=== PATIENT | female | born 1970 | race Caucasian/White ===

== ENCOUNTER 2019-09-14 09:05 | Emergency (ER) | payer BC, SELFPAY ==
--- NOTE | 2019-09-14 09:11 | ED_ITS ---
Entered by Ana Ybarra, acting as scribe for HPI - Chest Pain General: Chief Complaint: Neuro Symptoms/Deficit Stated Complaint: Cp/tightness Time Seen by Provider: 09/14/19 09:10 Source: patient Mode of arrival: ambulatory Limitations: no limitations History of Present Illness: HPI narrative: 49 yo female presents with chest pain. 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 when pt was driving to ED she had numbness to her R hand , R face and R leg. pt denies any other symptoms at this time. MD complaint: chest pain Onset (ago): minute(s) (just area captain) Timing of current episode: constant Prior episodes: No Onset: during exertion (cleaning up work station) Pain radiation: other (R hand) Severity: moderate Quality: tightness and heaviness Relieving factors: nothing Exacerbating factors: exertion Associated symptoms: Reports other (weakness to R side hand and leg and face) Review of Systems General: Reports: 10 or more systems reviewed and unremarkable except in HPI and below Neuro: Reports: numbness in extremities, weakness in extremities, changes in sensation and lack of coordination PFSH ED PFSH: Statuses (acute, chronic, etc) shown below reflect problem list status as previously entered and may not be historically accurate Social History Smoking and tobacco status: never smoked Physical Exam Narrative: EXAM NARRATIVE: Patient began having numbness and tingling to the right side of her face, right upper extremity and hand, and right lower extremity including foot, Const: COMMON NORMALS: oriented x3, no limitations, healthy appearing, alert and well nourished GENERAL APPEARANCE: cooperative, comfortable and well developed HENMT: COMMON NORMALS: normocephalic, head/scalp atraumatic, hearing grossly normal bilaterally, external ears normal and external nose normal HEAD & SCALP: normal to inspection, normocephalic and atraumatic FACE & SINUS: normal facial exam NOSE: external nose normal EXTERNAL EAR: Yes external ears normal MOUTH: oral and palatal mucosa normal Neck/C-Spine: COMMON NORMALS: full ROM, no lymphadenopathy, supple, no meningeal signs and no JVD Resp: COMMON NORMALS: normal respiratory effort, no retractions, no use of accessory muscles and clear to auscultation bilaterally AUSCULTATION: clear to auscultation bilaterally Cardio: COMMON NORMALS: no JVD, regular rate, regular rhythm, S1 normal heart sound, S2 normal heart sound and peripheral pulses 2+ throughout JUGULAR VENOUS DISTENTION: no JVD RATE: regular rate RHYTHM: regular rhythm HEART SOUNDS: S1 normal and S2 normal PERIPHERAL PULSES: pulses 2+ throughout GI: COMMON NORMALS: normal to inspection, nondistended, normoactive bowel sounds, soft to palpation, non-tender, no hepatosplenomegaly, no masses and no bruits PALPATION: Yes soft and Yes no hepatosplenomegaly : COMMON NORMALS: Yes no CVA tenderness BLADDER/KIDNEY EXAM: Yes no CVA tenderness Back/Pelvis: COMMON NORMALS: no CVA tenderness and thoracic and lumbar spine normal to inspection Extremity: COMMON NORMALS: normal to inspection, full ROM and normal capillary refill GENERAL: Yes normal exam except as noted Neuro: COMMON NORMALS: oriented x3 SENSORIUM/ORIENTATION: Yes alert MENINGEAL SIGNS: Yes no meningeal signs Skin: COMMON NORMALS: no rashes or lesions noted, no wounds, skin turgor normal, no jaundice and no petechiae GENERAL SKIN EXAM: no rashes or lesions noted and turgor normal Course Vital Signs: Vital signs: Vital Signs Temperature 98.3 F 09/14/19 09:21 Pulse Rate 99 09/14/19 09:21 Respiratory Rate 16 09/14/19 09:21 Blood Pressure 144/97 09/14/19 09:21 Pulse Oximetry 97 09/14/19 09:21 MDM - Chest Pain Lab Data: Labs: Lab Results 09/14/19 09/14/19 09/14/19 Range/Units 09:20 09:20 09:20 WBC 8.2 (4.0-10.0) 10^3/ uL RBC 5.28 (4.1-5.3) 10^6/u L Hgb 14.9 (11.5-15.3) g/dL Hct 45.0 (37.0-47.0) % MCV 85.2 (81-99) fL MCH 28.2 (28.0-34.0) pg MCHC 33.1 (30.0-36.0) g/dL RDW 11.9 L (12.1-15.1) % Plt Count 240 (130-400) 10^3/c mm MPV 11.4 H (7.4-10.4) fL Neut % (Auto) 61.8 % Lymph % (Auto) 27.7 % [place] % (Auto) 6.5 % Eos % (Auto) 3.1 % Baso % (Auto) 0.7 % Neut # (Auto) 5.1 (1.8-7.7) 10^3/u L Lymph # (Auto) 2.3 (0.8-4.8) 10^3/u L [place] # (Auto) 0.5 (0.2-0.9) 10^3/u L Eos # (Auto) 0.3 (0.0-0.8) 10^3/u L Baso # (Auto) 0.1 (0.0-0.1) 10^3/u L Nucleated RBC % (a uto) 0 % Nucleated RBCs # 0.0 /100WBC PT 13.80 H (10.5-13.3) SECO NDS INR 1.02 (0.8-1.2) APTT 29.3 (23.9-36.7) SECO NDS Sodium 133 L (136-145) mmol/L Potassium 4.4 (3.5-5.1) mmol/L Chloride 95 L (98-107) mmol/L Carbon Dioxide 26 (22-29) mmol/L Anion Gap 16.4 (5-19) BUN 11 (6-20) mg/dL Creatinine 0.8 (0.5-0.9) mg/dL GFR Calculation 75.6 L (90-130) mL/min Glucose 281 H (74-109) mg/dL Calcium 10.9 H (8.6-10.0) mg/Dl Total Bilirubin 0.5 (0.15-1.2) mg/dL AST 27 (0-32) U/L ALT 23 (0-33) U/L Alkaline Phosphata se 98 (35-105) IU/L Total Protein 7.5 (6.6-8.7) g/dL Albumin 4.5 (3.5-5.2) g/dL Globulin 3.0 (1.3-4.6) g/dL Ser , Divine i-Qnt 2.48 mIU/mL Coding Level of Care Code ED Grain Manager for Chg Fwd Exam Problem Focused The documentation recorded by the scribe, Ybarra,Ana Sada, accurately reflects the service I personally performed and the decisions made by me, Dustin Golden, Sep 14, 2019 09:05
[2019-09-14 09:12] VITALS: BMI 29.2
[2019-09-14 09:21] VITALS: BP 144/97; PULSE 99; RESP 16; TEMP 36.8; O2SAT 97
--- NOTE | 2019-09-14 09:21 | XR_ITS ---
WS: [id number] PORTABLE CHEST HISTORY: chest pain COMPARISON: 09/03/2015 Lungs are clear and well expanded. No pleural effusion or pneumothorax. Cardiac size: Normal. Mediastinum/Aorta: Normal mediastinum. No osseous abnormality seen. XR/XR chest 1V portable [id number] IMPRESSION: Unremarkable portable chest.
--- NOTE | 2019-09-14 09:21 | CT_ITS ---
WS: [id number] CT ANGIOGRAM CEREBRAL AND CAROTID ARTERIES HISTORY: cva, RIGHT weakness. TECHNIQUE: CT angiogram is performed of the carotid and cerebral arteries. During arterial injection imaging is obtained from the skull vertex to the aortic arch in 1.25 mm imaging. Coronal and sagittal reformats are submitted. Additional multi planar reformats of the carotid and cerebral arteries are submitted, MIP imaging also reviewed. NASCET criteria utilized. All CT scans at [facility] use at least one of these dose optimization techniques: automated exposure control; mA and/or kV ad justment per patient size (includes targeted exams where dose is matched to clinical indication); or iterative reconstruction. CONTRAST: Omnipaque 350; 95 mL IV. DLP: 2019.09 mGy.cm COMPARISON: None available. Carotid Angiogram: Right carotid: Common carotid artery: Arises normally from the innominate artery. No significant plaque or stenosis. Internal carotid artery: No plaque or stenosis. External carotid artery: Patent. Left carotid: Common carotid artery: Arises normally from the aorta. No significant plaque or stenosis. Internal carotid artery: No plaque or stenosis. External carotid artery: Patent. Right vertebral artery: Unremarkable. Left vertebral artery: Unremarkable. Arises normally from the subclavian artery. Subclavian arteries: No stenosis or significant abnormality. Upper thorax: Normal. Thyroid gland: Normal. Osseous structures: Straightening and reversal normal cervical lordosis. Mild spondylitic changes. CEREBRAL ANGIOGRAM: Intracranial vertebral arteries: Normal with no significant atherosclerosis. Basilar artery: No significant stenosis or occlusion. No aneurysm. Intracranial Internal carotid arteries: Demonstrates no significant stenosis or plaque. Middle cerebral arteries: Mild stenosis involving the origin of the LEFT M1 segment. Close to the derick ction with the ICA. No flow limitation or significant stenosis. Anterior cerebral arteries and ACOM: Normal. Posterior cerebral arteries and PCOM's: Normal. Dural venous sinuses are normally enhancing. Mastoid air cells: Normal. Paranasal sinuses: Normal. Calvarium: Normal. CT/CT angio headneck* [id number] IMPRESSION: 1. Normal carotid arteries. 2. Mild stenosis involving the origin of the LEFT M1 segment. No significant s tenosis or occlusions.
--- NOTE | 2019-09-14 09:21 | ECG_ITS ---
Measurements Intervals [place] Rate: 81 P: -16 [place]: 169 QRS: -40 QRSD: 94 T: 38 QT: 350 QTc: 407 SINUS RHYTHM MARKED LEFT AXIS DEVIATION [QRS AXIS < -30] PATTERN CONSISTENT WITH PULMONARY DISEASE VOLTAGE CRITERIA FOR LVH [MEETS CRITERIA IN ONE OF: R(aVL), S(V1), R(V5), R(V5/V6) +S(V1)] Compared to ECG 01/19/2016 21:31:01 Left-axis deviation now present Left ventricular hypertrophy now present Sinus tachycardia no longer present Electronically Signed On 09-14-2019 19:21:19 HEALTH CARE ANALYST by Maria G Panaigua M.D. [email or web address] ([email or web address]
--- NOTE | 2019-09-14 09:21 | CT_ITS ---
WS: [id number] CT HEAD NONCONTRAST HISTORY: Symptoms of Acute Stroke TECHNIQUE: Contiguous axial imaging performed through the brain in 2.5 mm imaging. Bone and soft tiss ue windows. Sagittal and coronal reformats reviewed. All CT scans at [facility] use at ast one of these dose optimization techniques: automated exposure control; mA and/or kV adjustment pe r patient size (includes targeted exams where dose is matched to clinical indication); or iterative r econstruction. DLP: 685.75 mGy.cm COMPARISON: MRI 04/28/2015 and 09/15/2013 No acute intracranial hemorrhage, midline shift or mass effect. No atrophy or prior infarcts or herniation. Appearance of the carrizales-white matter differentiation and visualization of the basal ganglia is selective the prior study. Ventricles: Normal size with no hydrocephalus. Similar appearance of the [place] of [place] and middle cervical arteries as seen on the prior studies. Paranasal sinuses: As visualized are clear. Mastoid air cells: Well pneumatized. Calvarium and scalp: Skull is intact with no soft tissue edema or swelling. Notified Dustin Golden DO at 09/14/2019 9:[address]/CT head wo con* [id number] IMPRESSION: 1. Negative CT head. 2. No intracranial blood or edema to suggest acute stroke at this time.
--- NOTE | 2019-09-14 09:27 | PC.NURSE ---
See paper stroke packet for exact time and details. Patient to CT via stretcher.
[2019-09-14 09:33] LABS: Basophils # 0.1 10^3/uL (0.0-0.1); Basophils % 0.7 %; Eosinophils # 0.3 10^3/uL (0.0-0.8); Eosinophils % 3.1 %; Hemoglobin 14.9 g/dL (11.5-15.3); Lymphocytes # 2.3 10^3/uL (0.8-4.8); Lymphocytes % 27.7 %; Mean Corpuscular HGB Conc 33.1 g/dL (30.0-36.0); Mean Corpuscular Hemoglobin 28.2 pg (28.0-34.0); Mean Corpuscular Volume 85.2 fL (81-99); Mean Platelet Volume 11.4 fL (7.4-10.4); Monocytes # 0.5 10^3/uL (0.2-0.9); Monocytes % 6.5 %; Neutrophils # 5.1 10^3/uL (1.8-7.7); Neutrophils % 61.8 %; Nucleated Red Blood Cells % 0 %; Platelet Count 240 10^3/cmm (130-400); Red Blood Count 5.28 10^6/uL (4.1-5.3); Red Cell Distribution Width 11.9 % (12.1-15.1); White Blood Count 8.2 10^3/uL (4.0-10.0)
[2019-09-14 09:39] LABS: INR 1.02 (0.8-1.2)
[2019-09-14 09:40] LABS: Partial Thromboplastin Time 29.3 SECONDS (23.9-36.7)
--- NOTE | 2019-09-14 09:40 | PC.NURSE ---
Patient back to room
[2019-09-14 09:41] VITALS: BP 156/110; PULSE 101; RESP 15; O2SAT 98
[2019-09-14] MEDS: iohexol 350 mg/mL 100 mL Btl IV (09:42)
[2019-09-14 09:45] LABS: HCG Quantitative 2.48 mIU/mL
[2019-09-14 09:52] VITALS: BP 168/101; PULSE 93; RESP 15; O2SAT 100
[2019-09-14 09:56] LABS: Alanine Aminotransferase 23 U/L (0-33); Albumin Level 4.5 g/dL (3.5-5.2); Alkaline Phosphatase 98 IU/L (35-105); Anion Gap 16.4 (5-19); Aspartate Amino Transferase 27 U/L (0-32); Blood Urea Nitrogen 11 mg/dL (6-20); Calcium 10.9 mg/Dl (8.6-10.0); Carbon Dioxide 26 mmol/L (22-29); Chloride 95 mmol/L (98-107); Glomerular Filtration Rate 75.6 mL/min (90-130); Glucose 281 mg/dL (74-109); Potassium 4.4 mmol/L (3.5-5.1); Sodium 133 mmol/L (136-145); Total Bilirubin 0.5 mg/dL (0.15-1.2); Total Protein 7.5 g/dL (6.6-8.7)
--- NOTE | 2019-09-14 09:59 | PC.NURSE ---
See stroke packet for documentation on TPA.
[2019-09-14 10:00] VITALS: BP 140/100; PULSE 89; RESP 15; O2SAT 97
--- NOTE | 2019-09-14 10:09 | W.ED.NEUROSD ---
HPI - Neuro Symptoms/Deficit General: Chief Complaint: Neuro Symptoms/Deficit Stated Complaint: Cp/tightness Time Seen by Provider: 09/14/19 09:10 Source: patient Mode of arrival: ambulatory Limitations: no limitations History of Present Illness: Severity: moderate PFSH ED PFSH: Statuses (acute, chronic, etc) shown below reflect problem list status as previously entered and may not be historically accurate Social History Smoking and tobacco status: never smoked Course Vital Signs: Vital signs: Vital Signs Temperature 98.3 F 09/14/19 09:21 Pulse Rate 101 H 09/14/19 09:41 Respiratory Rate 15 09/14/19 09:41 Blood Pressure 156/110 09/14/19 09:41 Pulse Oximetry 98 09/14/19 09:41 MDM - Neuro Symptoms/Deficit Lab Data: Labs: Lab Results 09/14/19 09/14/19 09/14/19 Range/Units 09:20 09:20 09:20 WBC 8.2 (4.0-10.0) 10^3/ uL RBC 5.28 (4.1-5.3) 10^6/u L Hgb 14.9 (11.5-15.3) g/dL Hct 45.0 (37.0-47.0) % MCV 85.2 (81-99) fL MCH 28.2 (28.0-34.0) pg MCHC 33.1 (30.0-36.0) g/dL RDW 11.9 L (12.1-15.1) % Plt Count 240 (130-400) 10^3/c mm MPV 11.4 H (7.4-10.4) fL Neut % (Auto) 61.8 % Lymph % (Auto) 27.7 % [place] % (Auto) 6.5 % Eos % (Auto) 3.1 % Baso % (Auto) 0.7 % Neut # (Auto) 5.1 (1.8-7.7) 10^3/u L Lymph # (Auto) 2.3 (0.8-4.8) 10^3/u L [place] # (Auto) 0.5 (0.2-0.9) 10^3/u L Eos # (Auto) 0.3 (0.0-0.8) 10^3/u L Baso # (Auto) 0.1 (0.0-0.1) 10^3/u L Nucleated RBC % (a uto) 0 % Nucleated RBCs # 0.0 /100WBC PT 13.80 H (10.5-13.3) SECO NDS INR 1.02 (0.8-1.2) APTT 29.3 (23.9-36.7) SECO NDS Sodium 133 L (136-145) mmol/L Potassium 4.4 (3.5-5.1) mmol/L Chloride 95 L (98-107) mmol/L Carbon Dioxide 26 (22-29) mmol/L Anion Gap 16.4 (5-19) BUN 11 (6-20) mg/dL Creatinine 0.8 (0.5-0.9) mg/dL GFR Calculation 75.6 L (90-130) mL/min Glucose 281 H (74-109) mg/dL Calcium 10.9 H (8.6-10.0) mg/Dl Total Bilirubin 0.5 (0.15-1.2) mg/dL AST 27 (0-32) U/L ALT 23 (0-33) U/L Alkaline Phosphata se 98 (35-105) IU/L Total Protein 7.5 (6.6-8.7) g/dL Albumin 4.5 (3.5-5.2) g/dL Globulin 3.0 (1.3-4.6) g/dL Ser , Divine i-Qnt 2.48 mIU/mL Discharge Plan Discharge Patient Disposition: Home, Self-Care Clinical Impression: Cerebrovascular accident Condition: Stable Prescriptions: No Action [place] 5-325 mg Tablet 1 tab PO Q6H PRN (Reason: Pain) RF: 0 Xanax 0.25 mg Tablet 0.25 mg PO BID PRN (Reason: Anxiety) RF: 0 Lidoderm 5 % Adhesive Patch,Medicated See Rx Instructions .ROUTE .COMPLEX RF: 0 Trulicity 1.5 mg/0.5 mL pen injector 1.5 mg SUBCUT Q7D RF: 0 Discharge Orders: Transfer Out of Facility (Order); Ordered 09/14/19 Ordered By: Dustin Golden Referrals: Lara Chisholm MD [Family Provider] - Coding Level of Care Code ED Remediation Technician for Jacquelineg Julio
[2019-09-14 10:17] LABS: Troponin(5th) Baseline 11 ng/mL (0-10)
--- NOTE | 2019-09-14 10:20 | PC.NURSE ---
Addendum entered by Avery Summers, RONNIE 09/14/19 10:43: Mild right arm,leg, and face numbness/weakness noted. Not improved at this time. Visual changes noted with right eye. Described as blurred vision. Original Note: Mild right arm,leg, and face numbness/weakness noted. Not improved at this time. Visual changes noted with right eye. Described at blurred vision.
[2019-09-14 10:24] VITALS: BP 152/99; PULSE 101; RESP 15; O2SAT 97
--- NOTE | 2019-09-21 11:06 | P.PNCC_ITS ---
Stroke Alert Activation ED Arrival Date: 09/14/19 ED Arrival Time: : Last Known Normal/at Baseline: 1-2 hours ago Other Last Known Well Infomation: I was called stat for stroke team at 10 for this patient who was last known normal a little over an hour ago. Her Accu- Chek was 249 and blood pressure 156/110. Although her presenting complaint was chest pain, she said that the reason she came was because of the acute onset of numbness on the right associated with weakness. She was wide-awake at the time of onset of symptoms. She had a significant deficit at the time of evaluation. She has risk factors of diabetes and hypertension, with new diagnosis of both. She was treated with TPA after giving informed consent and transferred to [facility] [place] for further care because we did not have an ICU bed. I explained to her that we need to make sure to have full control of her risk factors and that I would need to see her urgently in the office after discharge. Stroke Alert Activated by: Dr. Guerrero NIH stroke score NIHSS: Level Of Consciousness - 1a: 0 Level Of Consciousness Questions - 1b: Both Correct Level Of Consciousness Commands - 1c: Both Correct Best Gaze - 2: Normal Visual [place] - 3: No Visual Loss Facial Palsy - 4: Minor Paralysis Motor Arm Right - 5: Drift Motor Arm Left - 5: No Drift Motor Leg Right - 6: Drift Motor Leg Left - 6: No Drift Limb Ataxia - 7: Present In One Limb Sensory - 8: Mild To Moderate Loss Best Language - 9: No Aphasia Dysarthia - 10: Normal Extinction And Inattention - 11: 0 Score: Total Score: 5 Stroke Alert Data/Treatment Time to CT of Head: 09:24 CT Results Date: 09/14/19 CT Results Time: 09:26 Stroke Risk Factors: hyperlipidemia, hypertension, obesity and diabetes mellitus tPA Started Date: 09/14/19 tPA Started Time: tPA Started - Time: 09:46 tPA Admin Prior to Arrival: No Patient & Family Educated on: Cause of Stroke, Risk Factors, Treament Plan, Stroke Education Booklet and tPA Risks/Benefits Other Patient & Family Education: I talked with her at length about the cause of ischemic stroke and risk factors. I went over the stroke booklet with her. I asked her to be sure to be seen in my office within a week or 2 to make sure that we get her risk factors under control. She will follow closely with Dr. Adam. I reviewed her CBC and complete metabolic panel which were unremarkable. Lipid panel remains pending. I reviewed her normal CT of the head. Standardized Stroke Orders Used: Yes Other Information: Transferred to [facility] [place] because of lack of ICU beds Critical Care Time Critical Care Time: 30 - 74 mins Additional information about critical care time: I monitor this patient from the time she was in CAT scan until her bolus of TPA was administered. I took time to inform her of the diagnosis and the plan. I was at the bedside for 30 minutes. A&P Assessment and plan (1) Left acute arterial ischemic stroke, MCA (middle cerebral artery): Status: Acute Code(s): I63.512 - Cerebral infarction due to unspecified occlusion or stenosis of left middle cerebral artery (2) Diabetes mellitus type 2 in obese: Status: Acute Code(s): E11.69 - Type 2 diabetes mellitus with other specified complication; E66.9 - Obesity, unspecified (3) Hypertension: Status: Acute Code(s): I10 - Essential (primary) hypertension Coding Level of Care Code Acute Biology Laboratory Assistant for [facility] Diagnoses Left acute arterial ischemic stroke, MCA (middle cerebral artery) I63.512 Diabetes mellitus type 2 in obese E11.69; E66.9 Hypertension I10
== END 2019-09-14 10:26 | disposition home or self-care (01) ==
PROVIDERS: Emergency Provider Family Medicine; Family Provider Internal Medicine
DX: I63.9 Cerebral infarction, unspecified (principal)
CPT/HCPCS: 12345; 70450; 70496; 70498; 71045; 80053; 84484; 84702; 85025; 85610; 85730; 93005; 96360; 96374; 99282; J2997; Q9967

== ENCOUNTER → 2019-09-21 10:07 | Outpatient (BNVA) | payer BC, SELFPAY | PROVIDERS: Family Provider Internal Medicine; Visit Provider Specialist | DX: G43.009 Migraine without aura, not intractable, without status migrainosus (principal); Z86.73 Personal history of transient ischemic attack (TIA), and cerebral infarction without residual deficits | CPT/HCPCS: 99205; 99215 ==

== ENCOUNTER 2020-12-01 09:53 | Emergency (ER) | payer BC, SELFPAY ==
[2020-12-01 09:59] VITALS: BP 123/84; PULSE 98; RESP 18; TEMP 36.4; O2SAT 94; BMI 26.7
--- NOTE | 2020-12-01 10:16 | CT_ITS ---
WS: [id number] CT HEAD NONCONTRAST HISTORY: numbness to right side of body TECHNIQUE: Contiguous axial imaging performed through the brain in 2.5 mm imaging. Bone and soft tiss ue windows. Sagittal and coronal reformats reviewed. All CT scans at [facility] use at le ast one of these dose optimization techniques: automated exposure control; mA and/or kV adjustment pe r patient size (includes targeted exams where dose is matched to clinical indication); or iterative r econstruction. DLP: 719.32 mGy.cm COMPARISON: 09/15/2019 and 09/14/2019 No acute intracranial hemorrhage, midline shift or mass effect. No atrophy or prior infarcts or herniation. Small lacunar infarct in the RIGHT basal ganglia. No acu te area of sulcal effacement. Ventricles: Normal size with no hydrocephalus. Paranasal sinuses: As visualized are clear. Mastoid air cells: Well pneumatized. Calvarium and scalp: Skull is intact with no soft tissue edema or swelling. CT/CT head wo con* [id number] IMPRESSION: No acute intracranial hemorrhage or edema. Stable noncontrast head CT.
--- NOTE | 2020-12-01 10:28 | USCV_ITS ---
Argueta Inés Age: 50 Gender: F : 1970 Exam Date: 12/01/2020 10:41 Ordering Phys: Alberto Vargas Technologist: Ana Prince Exam Location: [facility] Indication: NUMBNESS IN RT HAND WITH PAIN RT LATERAL HUMERUS HISTORY: Pain and numbness in rt hand and arm since 3:30 am today. PROCEDURES: Venous duplex imaging was performed in only the right upper extremity. The following venous structures were evaluated: internal jugular vein, subclavian vein, axillary vein, and brachial veins. In addition, the basilic vein, cephalic vein, radial vein, and ulnar vein. FINDINGS: The veins of the right upper extremity are readily compressible with normal venous flow dynamics including spontaneous flow, respiratory phasic variation and augmentation. CONCLUSIONS No evidence for right upper extremity deep venous thrombosis. Dr. Jackie Garza DO (Electronically Signed) Final Date: 01 December 2020 12:25 S
--- NOTE | 2020-12-01 10:28 | ED_ITS ---
HPI - Neuro Symptoms/Deficit General: Chief Complaint: Neuro Symptoms/Deficit Stated Complaint: numbness in rt arm Time Seen by Provider: 12/01/20 10:16 History of Present Illness: HPI Narrative: Patient is a 50-year-old female comes to the ED with numbness and weakness right arm and right leg. Patient says she woke up with symptoms today. Patient has a past medical history of stroke approximately 1 year ago where she received TPA and was transferred to [facility]. She has some residual right arm and leg weakness. Patient also has a history of type 2 diabetes, hypertension and migraines. Patient does take clopidogrel and aspirin daily. Patient states she has residual right arm and right leg weakness but feels like they are a little weaker today. Patient did report that she might have overdone things last week and says she worked a lot and also made a trip up to [facility]. She reports having a headache for the past 20 days as well. She is also complained of having a little bit of numbness to her left maxillary region of face. Patient also says her right upper arm is sore and feels like it has a knot in it. She has a history of blood clots. Denies any injury or trauma to right arm to cause upper arm pain. Associated symptoms: Reports headache(s); Deny chest pain, nausea or vomiting Review of Systems Const: Denies: fever(s), chills or fatigue Eyes: Denies: change in vision or eye discomfort ENMT: Denies: throat pain, odynophagia, nasal discharge or nasal congestion Card: Denies: chest pain, palpitations, edema, swelling of feet/ankles, dyspnea on exertion or orthopnea Resp: Denies: dyspnea, productive cough or non-productive cough GI: Denies: abdominal pain, nausea, vomiting, diarrhea, constipation or hematochezia : Denies: flank pain, dysuria or hematuria Musc: Reports: extremity pain (upper right arm pain); Denies: neck pain, back pain or extremity swelling Skin/Breast: Denies: rash or new lesions Neuro: Reports: headache(s), numbness in extremities (right side-pt has residual numbness from previous stroke) and weakness in extremities (right side- pt has residual weakness from previous stroke) PFS ED PFSH: Social History Smoking and tobacco status: never smoked Alcohol intake: current Alcohol intake frequency: holidays/special occasions only NIH stroke score NIHSS: Level Of Consciousness - 1a: 0 Level Of Consciousness Questions - 1 b: Both Correct Level Of Consciousness Commands - 1c: Both Correct Best Gaze - 2: Normal Visual Whiting - 3: No Visual Loss Facial Palsy - 4: Normal Motor Arm Right - 5: No Drift Motor Arm Left - 5: No Drift Motor Leg Right - 6: No Drift Motor Leg Left - 6: No Drift Limb Ataxia - 7: Absent Sensory - 8: Normal Best Language - 9: No Aphasia Dysarthia - 10: Normal Extinction And Inattention - 11: 0 Score: Total Score: 0 Physical Exam Const: COMMON NORMALS: no acute distress, patient oriented x3 and healthy appearing GENERAL APPEARANCE: cooperative and comfortable HENMT: COMMON NORMALS: normocephalic HEAD & SCALP: normocephalic MOUTH: Normal oral and palatal mucosa present THROAT: posterior oropharynx normal and uvula midline Eye: COMMON NORMALS: Equal, round and reactive pupils present, EOMs intact bilaterally and normal visual whiting by confrontation PUPIL: Yes Equal, round and reactive pupils present Neck/C-Spine: COMMON NORMALS: supple GENERAL: Yes normal visual inspection Resp: COMMON NORMALS: normal respiratory effort, No retractions, No use of accessory muscles and clear to auscultation bilaterally AUSCULTATION: clear to auscultation bilaterally Cardio: COMMON NORMALS: regular rate, regular rhythm, S1 normal heart sound present, S2 normal heart sound present, No gallops present (Cardio), No clicks present (Cardio), No murmurs present (Cardio) and Peripheral pulses 2+ throughout RATE: regular rate RHYTHM: regular rhythm HEART SOUNDS: S1 normal heart sound present and S2 normal heart sound present PERIPHERAL PULSES: Peripheral pulses 2+ throughout GI: COMMON NORMALS: Normal to inspection, nondistended, normoactive bowel sounds present, Soft to palpation, non-tender and no masses PALPATION: Yes Soft to palpation : COMMON NORMALS: Yes no CVA tenderness BLADDER/KIDNEY EXAM: Yes no CVA tenderness Back/Pelvis: COMMON NORMALS: no CVA tenderness Extremity: NARRATIVE EXTREMITY EXAM: Right upper arm?no visible edema seen. No nodule palpated. Patient did have tenderness to palpation over mid humerus of arm. GENERAL: Yes normal exam except as noted Neuro: COMMON NORMALS: patient oriented x3, CN's II-XII intact bilaterally, moves all extremities, no focal motor deficits and no sensory deficits noted SPEECH: speech normal SENSORY EXAM: Yes extremities (intact) MOTOR EXAM: 5/5 motor strength present throughout and No Pronator motor function present Skin: GENERAL SKIN EXAM: dry skin Course Reevaluation(s): Reevaluation #1: I talked with patient about some of her labs that have come back and now she had an elevated blood sugar of 399 here in the ED. She did say that she had a cappuccino just prior to arrival. She thinks that is probably what shot up her blood sugars. Vital Signs: Vital signs: Vital Signs Temperature 97.5 F L 12/01/20 09:59 Pulse Rate 100 12/01/20 10:38 Respiratory Rate 18 12/01/20 10:38 Blood Pressure 106/69 12/01/20 10:38 Pulse Oximetry 97 12/01/20 10:38 MDM - Neuro Symptoms/Deficit MDM Narrative: Medical decision making narrative: Patient is a 50-year-old female comes to the ED with right-sided weakness. Patient has a history of past stroke approximately 1 year ago that left her with some residual right-sided weakness. Patient appears in no acute distress or pain and neuro exam was normal showed no deficits. Patient did have an elevated blood glucose of 399 but the rest of her labs were unremarkable. NIHSS-0. CT of head showed no acute findings. Ultrasound venous duplex of right upper extremity showed no DVTs or blood clots. Patient did say that she thinks she over exerted herself last week by working more days and also making a trip up to [place]. Patient's right sided weakness is probably from prior stroke on top of overexerting herself for this past week. Patient was given 10 units of insulin while here in the ED to treat her blood glucose and hydrocodone for her headache. Patient was diagnosed with weakness likely due to old stroke, hyperglycemia, headache and right upper arm pain. She has follow-up with her PCP this coming Friday. Return to ED precautions given. She was told to continue taking all her at home meds. Patient understood and agreed with plan. Lab Data: Attestation: I reviewed the patient's lab results. Labs: Lab Results 03/26/21 03/26/21 Range/Units 10:30 10:30 WBC 5.6 (4.0-10.0) 10^3/ uL RBC 5.08 (4.1-5.3) 10^6/u L Hgb 14.9 (11.5-15.3) g/dL Hct 44.2 (37.0-47.0) % MCV 87.0 (81-99) fL MCH 29.3 (28.0-34.0) pg MCHC 33.7 (30.0-36.0) g/dL RDW 11.8 L (12.1-15.1) % Plt Count 209 (130-400) 10^3/c mm MPV 11.8 H (7.4-10.4) fL Neut % (Auto) 56.3 % Lymph % (Auto) 30.6 % [place] % (Auto) 8.8 % Eos % (Auto) 3.4 % Baso % (Auto) 0.7 % Neut # (Auto) 3.12 (1.8-7.7) 10^3/u L Lymph # (Auto) 1.7 (0.8-4.8) 10^3/u L [place] # (Auto) 0.5 (0.2-0.9) 10^3/u L Eos # (Auto) 0.2 (0.0-0.8) 10^3/u L Baso # (Auto) 0.0 (0.0-0.1) 10^3/u L Nucleated RBC % (a uto) 0 % Nucleated RBCs # 0.0 /100WBC Sodium 134 L (136-145) mmol/L Potassium 3.6 (3.5-5.1) mmol/L Chloride 90 L (98-107) mmol/L Carbon Dioxide 34 H (22-29) mmol/L Anion Gap 13.6 (5-19) BUN 18 (6-20) mg/dL Creatinine 0.8 (0.5-0.9) mg/dL GFR Calculation 75.3 L (90-130) mL/min Glucose 399 H (65-115) mg/dL Calculated Osmolal ity 297 H (285-295) mOsm/k g Calcium 9.2 (8.5-10.5) mg/dL Total Bilirubin 0.4 (0.15-1.2) mg/dL AST 21 (0-32) U/L ALT 23 (0-33) U/L Alkaline Phosphata se 92 (35-105) IU/L Total Protein 7.6 (6.6-8.7) g/dL Albumin 4.5 (3.5-5.2) g/dL Globulin 3.1 (1.3-4.6) g/dL Imaging Data^: CT Head: Attestation: I personally reviewed and interpreted this imaging study as follows: Radiologist's impression: [address] [place] [address] CT Scan Report Signed Patient: Inés Argueta Unit #: [id number] : 1970 Age/Sex: 50 / F ADM Date: 12/01/20 Loc: ER Room/Bed: Attending Dr: Ordering Provider/Ordering MD: Alberto Vargas Date of Service: 12/01/20 Procedure(s): CT head wo con* [id number] Accession Number(s): [id number] Report Number: [id number] WS: [id number] CT HEAD NONCONTRAST HISTORY: numbness to right side of body TECHNIQUE: Contiguous axial imaging performed through the brain in 2.5 mm imaging. Bone and soft tissue windows. Sagittal and coronal reformats reviewed. All CT scans at [facility] use at least one of these dose optimization techniques: automated exposure control; mA and/or kV adjustment per patient size (includes targeted exams where dose is matched to clinical indication); or iterative reconstruction. DLP: 719.32 mGy.cm COMPARISON: 09/15/2019 and 09/14/2019 No acute intracranial hemorrhage, midline shift or mass effect. No atrophy or prior infarcts or herniation. Small lacunar infarct in the RIGHT basal ganglia. No acute area of sulcal effacement. Ventricles: Normal size with no hydrocephalus. Paranasal sinuses: As visualized are clear. Mastoid air cells: Well pneumatized. Calvarium and scalp: Skull is intact with no soft tissue edema or swelling. CT/CT head wo con* [id number] IMPRESSION: No acute intracranial hemorrhage or edema. Stable noncontrast head CT. Dictated By: Jackie Garza DO Signed By: Jackie Garza A Signed Date/Time: 12/01/20 1135 DD/ 1128 US Vascular: Attestation: I personally reviewed and interpreted this imaging study as follows: Radiologist's impression: Ultrasound venous duplex right upper extremity?prelim report no DVTs or blood clots seen. Discharge Plan Discharge Patient Disposition: Home Clinical Impression: Weakness due to old stroke, Hyperglycemia Upper arm pain Qualifiers: Laterality: right Qualified Code(s): M79.621 - Pain in right upper arm Headache Qualifiers: Headache type: unspecified Headache chronicity pattern: acute headache Intractability: not intractable Qualified Code(s): R51.9 - Headache, unspecified Condition: Stable Prescriptions: No Action aspirin [Aspir-Low] 81 mg tablet,delayed release (DR/EC) 81 mg PO DAILY@1999 RF: 0 hydroxyzine HCl 25 mg tablet 25 mg PO DAILY PRN (Reason: Anxiety) RF: 0 magnesium oxide 400 mg (241.3 mg magnesium) tablet 800 mg PO DAILY@1999 RF: 0 hydrocodone-acetaminophen [Thorndale] 5-325 mg Tablet 1 tab PO Q6H PRN (Reason: Pain) RF: 0 alprazolam [Xanax] 0.25 mg Tablet 0.25 mg PO BID PRN (Reason: Anxiety) RF: 0 lidocaine [Lidoderm] 5 % Adhesive Patch,Medicated See Rx Instructions .ROUTE .COMPLEX RF: 0 Trulicity 1.5 mg/0.5 mL pen injector 1.5 mg SUBCUT Q7D RF: 0 losartan 50 mg Tablet 50 mg PO DAILY@1999 RF: 0 venlafaxine 150 mg Capsule,Extended Release 24hr 150 mg PO DAILY@1999 RF: 0 hydrochlorothiazide 25 mg Tablet 25 mg PO DAILY@1999 RF: 0 Crestor 10 mg Tablet 10 mg PO DAILY@1999 RF: 0 Plavix 75 mg tablet 75 mg PO DAILY@1999 RF: 0 Discharge Orders: Discharge ED (Routine); Ordered 12/01/20 Ordered By: Alberto Vargas Referrals: Lara Chisholm MD [Primary Care Provider] - Discharge Diet: Regular Discharge Activity: Increase activity as tolerated Patient Instructions: Hyperglycemia Activity Restrictions/Additional Instructions: Follow-up with medical provider as directed at your next scheduled appointment this coming Friday. Continue taking all home medications as previously p rescribed. Return to the ER or your medical provider if condition worsens. Please read and understand discharge instructions. If any questions, please ask. Coding Level of Care Code ED Factorer for Jacquelineg Fwd Exam Comprehensive
[2020-12-01 10:38] VITALS: BP 106/69; PULSE 100; RESP 18; O2SAT 97
[2020-12-01 10:58] LABS: Basophils % 0.7 %; Eosinophils # 0.2 10^3/uL (0.0-0.8); Eosinophils % 3.4 %; Hematocrit 44.2 % (37.0-47.0); Hemoglobin 14.9 g/dL (11.5-15.3); Lymphocytes # 1.7 10^3/uL (0.8-4.8); Lymphocytes % 30.6 %; Mean Corpuscular HGB Conc 33.7 g/dL (30.0-36.0); Mean Corpuscular Hemoglobin 29.3 pg (28.0-34.0); Mean Platelet Volume 11.8 fL (7.4-10.4); Monocytes # 0.5 10^3/uL (0.2-0.9); Monocytes % 8.8 %; Neutrophils # 3.12 10^3/uL (1.8-7.7); Neutrophils % 56.3 %; Nucleated Red Blood Cells % 0 %; Platelet Count 209 10^3/cmm (130-400); Red Blood Count 5.08 10^6/uL (4.1-5.3); Red Cell Distribution Width 11.8 % (12.1-15.1); White Blood Count 5.6 10^3/uL (4.0-10.0)
[2020-12-01 10:59] LABS: Alanine Aminotransferase 23 U/L (0-33); Albumin Level 4.5 g/dL (3.5-5.2); Alkaline Phosphatase 92 IU/L (35-105); Anion Gap 13.6 (5-19); Aspartate Amino Transferase 21 U/L (0-32); Blood Urea Nitrogen 18 mg/dL (6-20); Calcium 9.2 mg/dL (8.5-10.5); Carbon Dioxide 34 mmol/L (22-29); Chloride 90 mmol/L (98-107); Creatinine Clr Calc Pharmacy 79.3763; Globulin 3.1 g/dL (1.3-4.6); Glomerular Filtration Rate 75.3 mL/min (90-130); Glucose 399 mg/dL (65-115); Osmolality Calculated 297 mOsm/kg (285-295); Potassium 3.6 mmol/L (3.5-5.1); Sodium 134 mmol/L (136-145); Total Bilirubin 0.4 mg/dL (0.15-1.2); Total Protein 7.6 g/dL (6.6-8.7)
[2020-12-01] MEDS: insulin regular-human 100 units/1 mL 10 UNIT IVP (11:11)
[2020-12-01] MEDS: HYDROcodone-acetaminophen 5-325 mg Tablet 1 TAB PO (11:25)
[2020-12-01 12:38] VITALS: BP 106/69; PULSE 100; RESP 18; O2SAT 97
== END 2020-12-01 12:39 | disposition home or self-care (01) ==
PROVIDERS: Emergency Provider Physician Assistant; PCP Internal Medicine
DX: R53.1 Weakness (principal); R51.9 Headache, unspecified; M79.621 Pain in right upper arm; R73.9 Hyperglycemia, unspecified; Z79.82 Long term (current) use of aspirin; Z86.73 Personal history of transient ischemic attack (TIA), and cerebral infarction without residual deficits
CPT/HCPCS: 70450; 80053; 85025; 93971; 96374; 99284; J1815

== ENCOUNTER 2020-12-18 09:06 | Outpatient (CLI) | payer BC, SELFPAY ==
--- NOTE | 2020-12-18 09:48 | MR_ITS ---
WS: [id number] MRI HEAD WITHOUT AND WITH GADOLINIUM ENHANCEMENT WITH ATTENTION TO THE PITUITARY. TECHNIQUE: Sagittal T1, T2 axial, T2 axial FLAIR, axial susceptibility weighted imaging, axial diffus ion weighted images, and coronal T2 images were obtained. Pre and post-T1 axial and post T1 coronal i mages. ADC and FSPGR images. High-resolution imaging with attention to the pituitary. CLINICAL INFORMATION: MIGRAINE HEADACHE COMPARISON: MRI September 15, [address] December 01, 2020 and MRI April 28, 2015 FINDINGS: No evidence of restricted diffusion to suggest acute ischemia. Ventricular system and basal cisterns are patent. Mild supratentorial periventricular and subcortical white matter changes unchanged since September 15, 2019. This is slightly progressed compared . White matter changes in the fer. Normal posterior fossa. Normal vascular flow voids at the skull base. No extra-axial fluid collection s. No evidence of mass or mass effect. Paranasal sinuses and mastoid air cells are well aerated. No h emosiderin on susceptibly weighted images. Normal optic chiasm and pituitary infundibulum. No evidence of intrasellar or suprasellar mass. Bethany l cavernous sinuses and Meckel's cave. Temporal lobes and hippocampal formations are normal in appear ance. No abnormal intracranial enhancement. Normal dural venous sinuses. MR/MR pituitary wo/w con* [id number] IMPRESSION: 1. No evidence of restricted diffusion to suggest acute ischemia. 2. No evidence of intrasellar or suprasellar mass. Partially empty sella. Norm al residual enhancing pituitary tissue. 3. Normal cavernous sinus and Meckel's cave. 4. Mild patchy supratentorial white matter changes nonspecific in a patient th is age but can be seen with hypertension, diabetes, and migraine headaches. Mil d white matter changes in the fer. 5. No hemosiderin on the susceptibility weighted images. 6. No abnormal gadolinium enhancement.
[2020-12-18] MEDS: gadobenate dimeglumine 20 mL vial IV (10:38)
== END 2020-12-18 09:07 | disposition home or self-care (01) ==
PROVIDERS: PCP Internal Medicine; Visit Provider Internal Medicine
DX: G43.909 Migraine, unspecified, not intractable, without status migrainosus (principal)
CPT/HCPCS: 70553; A9577

== ENCOUNTER 2021-04-10 15:32 | Outpatient (CLI) | payer BC, SELFPAY ==
--- NOTE | 2021-04-10 15:38 | XR_ITS ---
WS: [id number] Pelvis, AP view, 04/10/2021 Clinical Data: FALL WITH PAIN IN LT HIP THAT RADIATES INTO GROIN WITH EDEMA Comparison: None. Findings: No fractures or dislocations are seen. The SI joints and pubic symphysis are intact. The soft tissues are not remarkable. There are phleboliths in the true pelvis. XR/XR pelvis 1-2V* [id number] Impression: Negative for fracture.
--- NOTE | 2021-04-10 15:38 | XR_ITS ---
WS: [id number] KUB, AP view, 04/10/2021 Clinical Data: FALL LT GROIN PAIN WITH EDEMA Comparison: KUB, 08/04/2018. Findings: No abnormal intraabdominal masses or calcifications are seen. There is no dilatated small bowel or ev idence of obstruction. There is a density overlying the right kidney which may be within the colon. There is moderate fecal material throughout the colon. There are phleboliths in the pelvis. There are clips in the right uppe r quadrant from a cholecystectomy. XR/XR abdomen 1V* [id number] Impression: Negative KUB.
== END 2021-04-10 15:33 | disposition home or self-care (01) ==
LOC: RADOUTREAD 15:35 → WPI 15:36
PROVIDERS: PCP Internal Medicine; Visit Provider Internal Medicine
DX: M25.552 Pain in left hip (principal)
CPT/HCPCS: 72170; 74018

== ENCOUNTER 2022-11-20 07:51 | Outpatient (CLI) | payer BC, SELFPAY ==
--- NOTE | 2022-11-20 08:14 | MM_ITS ---
WS: [id number] BILATERAL SCREENING DIGITAL TOMOSYNTHESIS MAMMOGRAM WITH CAD HISTORY: SCREENING COMPARISON: 03/13/2018 and 03/13/2016 Bilateral CC and MLO views with tomosynthesis and synthetic mammography submitted. Computer aided det ection analyzed. Breast composition: The breasts are almost entirely fatty. No suspicious masses, microcalcifications or architectural distortion. Benign calcification anterior LEFT breast. MM/[place] [id number] IMPRESSION: BI-RADS: 2-Benign FOLLOW UP: 1 Year Follow-up
== END 2022-11-20 07:52 | disposition home or self-care (01) ==
LOC: RAD 07:53
PROVIDERS: PCP Internal Medicine; Visit Provider Internal Medicine
DX: Z12.31 Encounter for screening mammogram for malignant neoplasm of breast (principal)
CPT/HCPCS: 77063; 77067

== ENCOUNTER 2023-09-11 10:38 | Emergency (ER) | payer BC, SELFPAY ==
[2023-09-11 10:45] VITALS: BP 169/89; PULSE 106; TEMP 36.7; O2SAT 98; BMI 20.5
--- NOTE | 2023-09-11 10:47 | CT_ITS ---
WS: [id number] CT HEAD NONCONTRAST HISTORY: zee, right-sided facial numbness. TECHNIQUE: Contiguous axial imaging performed through the brain in 2.5 mm imaging. Bone and soft tiss ue windows. Sagittal and coronal reformats reviewed. All CT scans at [facility] use at least one of these dose optimization techniques: automated exposure control; mA and/or kV adjustment per pa tient size (includes targeted exams where dose is matched to clinical indication); or iterative recon struction. DLP: 1019.48 mGy.cm COMPARISON: 12/01/2020 No acute intracranial hemorrhage, midline shift or mass effect. Mild atrophy. Reidentified is a small lacunar infarct or perivascular space along the inferior RIGHT basal ganglia. Ventricles: Normal size with no hydrocephalus. Paranasal sinuses: As visualized are clear. Mastoid air cells: Well pneumatized. Pneumatization of the LEFT petrous ridge. Calvarium and scalp: Skull is intact with no soft tissue edema or swelling. IMPRESSION: 1. No acute intracranial hemorrhage or edema. 2. Stable lacunar infarct versus perivascular space RIGHT basal ganglia.
--- NOTE | 2023-09-11 10:48 | ECG_ITS ---
[facility] Test Date: 2023-09-11 Pat Name: Inés Argueta Department: Room: Gender: Female Financial Reporting Accountant: : 1970 Requested By: Jason Forman Order Number: [id number] Joel MD: Daniel Schaefer M.D. Measurements Intervals [place] Rate: 78 P: 32 TN: 157 QRS: -11 QRSD: 94 T: 58 QT: 379 QTc: 432 Interpretive Statements SINUS RHYTHM Compared to ECG 09/14/2019 09:14:24 Left-axis deviation no longer present Left ventricular hypertrophy no longer present Electronically Signed On 09-11-2023 13:02:01 SHOT BLAST EQUIPMENT OPERATOR by Daniel Schaefer M.D. [email or web address] [facility] Pharmaceuticalssouthwest mississippi regional medical centerVeryLastRoomacmc healthcare system glenbeighAlnylam [email or web address]/[id number]
--- NOTE | 2023-09-11 10:49 | ED_ITS ---
HPI - Neuro Symptoms/Deficit 2 General: Chief Complaint: Headache Stated Complaint: headache, facial numbness Time Seen by Provider: 09/11/23 10:44 Source: patient Mode of arrival: ambulatory Limitations: no limitations History of Present Illness: 53-year-old female has a history of [place] headache she states that she has had a headache since 1 AM this morning. States her headache is severe in nature rates it a 10 out of 10 she states she has had some right-sided facial numbness denies any slurred speech denies any weakness. Her headaches gradually worsened. She denies any fevers. Associated symptoms: Reports headache(s); Deny chest pain, nausea or vomiting Review of Systems 2 Const: Denies: fever(s), chills, body aches or change in appetite Eyes: Denies: change in vision ENMT: Denies: throat pain or dental pain Card: Denies: chest pain Resp: Denies: dyspnea GI: Denies: abdominal pain, nausea, vomiting or diarrhea : Denies: dysuria Musc: Denies: neck pain or back pain Skin/Breast: Denies: rash Neuro: Reports: headache(s) and sensory changes PFSH ED 2 PFSH: Social History Smoking and tobacco/nicotine status: never used tobacco/nicotine Alcohol intake: current Alcohol intake frequency: holidays/special occasions only Substance/Drug Use: never NIH stroke score 2 NIHSS: Level Of Consciousness - 1a: 0 Level Of Consciousness Questions - 1b: Both Correct Level Of Consciousness Commands - 1c: Both Correct Best Gaze - 2: Normal Visual Wh[place] - 3: No Visual Loss Facial Palsy - 4: N ormal Motor Arm Right - 5: No Drift Motor Arm Left - 5: No Drift Motor Leg Right - 6: No Drift Motor Leg Left - 6: No Drift Limb Ataxia - 7: A bsent Sensory - 8: Normal Best Language - 9: No Aphasia Dysarthia - 10: Normal Extinction And Inattention - 11: 0 Score: Total Score: 0 Physical Exam 2 Const: COMMON NORMALS: no acute distress, patient oriented x3 and healthy appearing HENMT: COMMON NORMALS: normocephalic and atraumatic HEAD & SCALP: n ormocephalic and atraumatic Eye: COMMON NORMALS: Equal, round and reactive pupils present and EOMs intact bilaterally PUPIL: Yes Equal, round and reactive pupils present Neck/C-Spine: COMMON NORMALS: full ROM and supple Chest: COMMONS NORMALS: normal inspection of the chest Resp: COMMON NORMALS: normal respiratory effort Cardio: COMMON NORMALS: regular rate, regular rhythm and No murmurs present (Cardio) RATE: regular rate RHYTHM: regular rhythm Extremity: COMMON NORMALS: normal to inspection and full ROM Neuro: COMMON NORMALS: patient oriented x3, moves all extremities and no focal motor deficits CRANIAL NERVES: Yes CN normal except as noted SPEECH: s peech normal MOTOR EXAM: 5/5 motor strength present throughout Psych: COMMON NORMALS: mental status grossly normal, Normal thought process present and cooperative THOUGHT PROCESS: Normal thought process present Skin: COMMON NORMALS: no rashes or lesions noted and no wounds GENERAL SKIN EXAM: no rashes or lesions noted Course 2 Vital Signs: Vital signs: Vital Signs Temperature 98.1 F 09/11/23 10:45 Pulse Rate 80 09/11/23 12:23 Respiratory Rate 14 09/11/23 12:23 Blood Pressure 101/79 09/11/23 12:23 Pulse Oximetry 99 09/11/23 12:23 Oxygen Delivery Me thod Room Air 09/11/23 12:00 MDM - Neuro Symptoms/Deficit Medical Decision Making Patient presents here with a headache likely migraine headache her headaches much improved here she has no signs of subarachnoid hemorrhage or meningitis or an aneurysm she has had a history of migraines in the past her head CT here is normal she is stable for discharge informed if her headache worsens she is to return she understands agrees to plan. Medical Records I reviewed the patient's medical records. Lab Data I reviewed the patient's lab results. 09/11/23 11:14 09/11/23 11:14 Laboratory Results WBC 5.48 10^3/uL (3.29-11.43) 09/11/23 11:14 RBC 5.12 10^6/uL (3.85-5.65) 09/11/23 11:14 Hgb 14.90 g/dL (11.27-16.99) 09/11/23 11:14 Hct 44.7 % (36-47) 09/11/23 11:14 MCV 87.3 fl (85-98) 09/11/23 11:14 MCH 29.1 pg (27-33) 09/11/23 11:14 MCHC 33.3 g/dL (30-55) 09/11/23 11:14 RDW 12.9 % (12.1-15.1) 09/11/23 11:14 Plt Count 169 10^3/cmm (157-399) 09/11/23 11:14 MPV 10.7 fL (7.4-10.4) H 09/11/23 11:14 Neut % (Auto) 82.1 % 09/11/23 11:14 Lymph % (Auto) 6.9 % 09/11/23 11:14 Anson % (Auto) 9.1 % 09/11/23 11:14 Eos % (Auto) 1.5 % 09/11/23 11:14 Baso % (Auto) 0.2 % 09/11/23 11:14 Neut # (Auto) 4.50 10^3/uL (1.8-7.7) 09/11/23 11:14 Lymph # (Auto) 0.4 10^3/uL (0.8-4.8) L 09/11/23 11:14 Anson # (Auto) 0.5 10^3/uL (0.2-0.9) 09/11/23 11:14 Eos # (Auto) 0.1 10^3/uL (0.0-0.8) 09/11/23 11:14 Baso # (Auto) 0.0 10^3/uL (0.0-0.1) 09/11/23 11:14 Nucleated RBC % (auto) 0 % 09/11/23 11:14 Nucleated RBCs # 0.0 /100WBC 09/11/23 11:14 PT 12.90 SECONDS (12.1-14.9) 09/11/23 11:14 INR 0.95 (0.8-1.2) 09/11/23 11:14 Sodium 136 mmol/L (136-145) 09/11/23 11:14 Potassium 3.7 mmol/L (3.5-5.1) 09/11/23 11:14 Chloride 97 mmol/L (98-107) L 09/11/23 11:14 Carbon Dioxide 28 mmol/L (22-29) 09/11/23 11:14 Anion Gap 14.7 (5-19) 09/11/23 11:14 BUN 14 mg/dL (6-20) 09/11/23 11:14 Creatinine 0.9 mg/dL (0.5-0.9) 09/11/23 11:14 GFR Calculation 65.0 mL/min (90-130) L 09/11/23 11:14 Glucose 130 mg/dL (65-115) H 09/11/23 11:14 Calculated Osmolality 284 mOsm/kg (285-295) L 09/11/23 11:14 Calcium 9.8 mg/dL (8.5-10.5) 09/11/23 11:14 Total Bilirubin 0.4 mg/dL (0.15-1.2) 09/11/23 11:14 AST 22 U/L (0-32) 09/11/23 11:14 ALT 15 U/L (0-33) 09/11/23 11:14 Alkaline Phosphatase 76 U/L (35-105) 09/11/23 11:14 Total Protein 7.7 g/dL (6.6-8.7) 09/11/23 11:14 Albumin 4.5 g/dL (3.5-5.2) 09/11/23 11:14 Globulin 3.2 g/dL (1.3-4.6) 09/11/23 11:14 All radiology interpretation(s) finalized by discharge EKG Data EKG 1: I personally reviewed and interpreted this EKG as follows: EKG interpretation date: 09/11/23 EKG interpretation time: 11:02 Interpretation: nsr hr [address] or twave abnormalities qrs 94 qtc 412 Discharge Plan Discharge Patient Disposition: Home Clinical Impression: Headache Qualifiers: Headache type: unspecified Headache chronicity pattern: acute headache I ntractability: not intractable Qualified Code(s): R51.9 - Headache, unspecified Condition: Stable Prescriptions: No Action magnesium oxide 400 mg (241.3 mg magnesium) tablet 800 mg PO DAILY@1999 hydrochlorothiazide 25 mg Tablet 25 mg PO DAILY@1999 clopidogrel [Plavix] 75 mg tablet 75 mg PO DAILY@1999 hydrocodone-acetaminophen 5-325 mg tablet 1 tab PO Q6H PRN (Reason: Pain) Aspir-81 81 mg Tablet,Delayed Release (Dr/Ec) 81 mg PO QPM losartan 25 mg tablet 25 mg PO QPM metformin 500 mg tablet extended release 24 hr 500 mg PO BID Mounjaro 2.5 mg/0.5 mL pen injector 2.5 mg SUBCUT Q7D Jardiance 25 mg tablet 25 mg PO DAILY Discharge Orders: Discharge ED (Routine); Ordered 09/11/23 Ordered By: Jason Forman Referrals: Lara Chisholm MD [Primary Care Provider] - 1-3 days Discharge Diet: Advance as tolerated Discharge Activity: Resume usual activity Patient Instructions: Headache - Migraine (Adult) Coding Level of Care Code 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
[2023-09-11 11:17] VITALS: BP 109/75; PULSE 86; RESP 15; O2SAT 99
[2023-09-11 11:20] LABS: Basophils % 0.2 %; Eosinophils # 0.1 10^3/uL (0.0-0.8); Eosinophils % 1.5 %; Hematocrit 44.7 % (36-47); Lymphocytes # 0.4 10^3/uL (0.8-4.8); Lymphocytes % 6.9 %; Mean Corpuscular HGB Conc 33.3 g/dL (30-55); Mean Corpuscular Hemoglobin 29.1 pg (27-33); Mean Corpuscular Volume 87.3 fl (85-98); Mean Platelet Volume 10.7 fL (7.4-10.4); Monocytes # 0.5 10^3/uL (0.2-0.9); Monocytes % 9.1 %; Neutrophils % 82.1 %; Nucleated Red Blood Cells % 0 %; Platelet Count 169 10^3/cmm (157-399); Red Blood Count 5.12 10^6/uL (3.85-5.65); Red Cell Distribution Width 12.9 % (12.1-15.1); White Blood Count 5.48 10^3/uL (3.29-11.43)
[2023-09-11] MEDS: metoclopramide 5 mg/mL SDV 2 mL 10 MG IVP (11:21)
[2023-09-11] MEDS: diphenhydrAMINE 50 mg/mL SDV 1mL IVP (11:21)
[2023-09-11 11:31] LABS: INR 0.95 (0.8-1.2)
[2023-09-11 11:40] LABS: Alanine Aminotransferase 15 U/L (0-33); Albumin Level 4.5 g/dL (3.5-5.2); Alkaline Phosphatase 76 U/L (35-105); Anion Gap 14.7 (5-19); Aspartate Amino Transferase 22 U/L (0-32); Blood Urea Nitrogen 14 mg/dL (6-20); Calcium 9.8 mg/dL (8.5-10.5); Carbon Dioxide 28 mmol/L (22-29); Chloride 97 mmol/L (98-107); Globulin 3.2 g/dL (1.3-4.6); Glucose 130 mg/dL (65-115); Osmolality Calculated 284 mOsm/kg (285-295); Potassium 3.7 mmol/L (3.5-5.1); Sodium 136 mmol/L (136-145); Total Bilirubin 0.4 mg/dL (0.15-1.2); Total Protein 7.7 g/dL (6.6-8.7)
[2023-09-11 12:00] VITALS: BP 101/79; PULSE 80; RESP 14; O2SAT 100
[2023-09-11] MEDS: ketorolac 30 mg/mL INJ 15 MG IVP (12:22)
[2023-09-11 12:23] VITALS: BP 101/79; PULSE 80; RESP 14; O2SAT 99
== END 2023-09-11 12:24 | disposition home or self-care (01) ==
PROVIDERS: Emergency Provider Emergency Medicine; PCP Internal Medicine
DX: R51.9 Headache, unspecified (principal); Z79.02 Long term (current) use of antithrombotics/antiplatelets; Z79.82 Long term (current) use of aspirin; Z79.84 Long term (current) use of oral hypoglycemic drugs
CPT/HCPCS: 70450; 80053; 85025; 85610; 93005; 96374; 96375; 99285; J1200; J1885; J2765

== ENCOUNTER 2025-01-05 12:09 | Outpatient (CLI) | payer BC, SELFPAY ==
--- NOTE | 2025-01-05 12:15 | MM_ITS ---
WS: [id number] BILATERAL 3D TOMOSYNTHESIS DIGITAL SCREENING MAMMOGRAPHY WITH CAD CLINICAL INFORMATION: SCREENING HISTORY: Screening mammogram. No current complaints. COMPARISON: 2022 TECHNIQUE: Bilateral CC and MLO views. FINDINGS: Scattered fibroglandular densities bilaterally. No suspicious focal mass, asymmetry, calcifications, or architectural distortion. No evidence of malignancy. Incidental punctate calcifications. MM/MM [facility] tomosynthesis [id number] IMPRESSION: DENSITY: There are scattered areas of fibroglandular density. BI-RADS: 2 - Benign. FOLLOW UP: 1 Year Follow-up Recommend return to annual screening mammography.
--- NOTE | 2025-01-05 12:15 | XR_ITS ---
WS: [id number] DEXA (DUAL ENERGY X-RAY ABSORPTIOMETRY) Bone mineral density was performed using a Chug machine. HISTORY: ASYMPTOMATIC POSTMENOPAUSAL STATUS COMPARISON: None available. Lumbar spine BMD (L1-L4): 0.821 g/cm2 T score: -3.0 Z score: -1.9 Total hip BMD: Left: 0.689 g/cm2. T score: -2.5 Z score: -1.7 Right: 0.610 g/cm2. T score: -3.2 Z score: -2.3 10 year probability of a major osteoporotic fracture is 19.8%. XR/XR DEXA axial skeleton* [id number] IMPRESSION: OSTEOPOROSIS based upon the WHO classification for females.
== END 2025-01-05 12:10 | disposition home or self-care (01) ==
PROVIDERS: PCP Internal Medicine; Visit Provider Internal Medicine
DX: Z12.31 Encounter for screening mammogram for malignant neoplasm of breast (principal); M81.0 Age-related osteoporosis without current pathological fracture; R92.323 Mammographic fibroglandular density, bilateral breasts; R92.1 Mammographic calcification found on diagnostic imaging of breast
CPT/HCPCS: 77063; 77067; 77080